=== PATIENT | male | born 1990 | race Caucasian/White ===

== ENCOUNTER 2017-04-17 15:32 | Emergency (ER) | payer SELFPAY ==
[~2017-04-17] VITALS: Ht 193 cm; Wt 117.5 kg
[2017-04-17 16:05] VITALS: BP 146/80
[2017-04-17] MEDS ORDERED: NAPROXEN 500 MG TABLET PO STA (16:13)
[2017-04-17] MEDS ORDERED: HYDROcodone/APAP 5/325MG 1 TAB TABLET PO ONE (16:15)
--- NOTE | 2017-04-17 16:21 | PHYS DOC ---
Past Medical History Past Medical History: No Pertinent History Past Surgical History: Other Additional Past Surgical Histo: TOE SX, L ULNA SX, WISDOM TEETH REMOVAL Alcohol Use: None Drug Use: None Adult General Chief Complaint Chief Complaint: KNEE INJURY HPI HPI Patient is a 26 year old male with no significant medical history who presents today with 8 out of 10 left medial knee pain worse on straightening the knee. Patient states his knee pops out of place several times a day year and he is usually able to put it back in place. Patient states today, it popped out of place and he has been unable to put it back in place. Patient states he cannot straighten the knee right now due to pain. Patient denies any trauma. Review of Systems Review of Systems Constitutional: Denies fever or chills [] Musculoskeletal: Left medial knee pain Integument: Denies rash or skin lesions [] Neurologic: Denies headache, focal weakness or sensory changes [] Endocrine: Denies polyuria or polydipsia [] Current Medications Current Medications Current Medications Medications (Trade) Dose Ordered Sig/Noemí Start Time Stop Time Status Last Admin Dose Admin Acetaminophen/ Hydrocodone Bitart (Lortab 5/325) 2 tab 1X ONCE 04/17/17 16:15 04/17/17 16:16 DC 04/17/17 16:27 2 TAB Naproxen (Naprosyn) 500 mg 1X STAT 04/17/17 16:13 04/17/17 16:15 DC 04/17/17 16:26 500 MG Allergies Allergies Allergies Coded Allergies Type Severity Reaction Last Updated Verified No Known Drug Allergies 04/17/17 No Physical Exam Physical Exam Constitutional: Well developed, well nourished, no acute distress, non-toxic appearance. [] Skin: Warm, dry, no erythema, no rash. [] Back: No tenderness, no CVA tenderness. [] Extremities: Left medial knee with small amount of diffuse soft tissue swelling. Tenderness on palpation of the knee. Patient unable to straighten the left knee. Unable to take the knee through any range of motion due to pain. +2 left pedal pulse. Cap refill less than 2 seconds left lower extremity. Sensation intact to the left lower extremity. Neurologic: Alert and oriented X 3, normal motor function, normal sensory function, no focal deficits noted. [] Psychologic: Affect normal, judgement normal, mood normal. [] Current Patient Data Vital Signs Vital Signs Date Time Temp Pulse Resp B/P (MAP) Pulse Ox O2 Delivery O2 Flow Rate FiO2 04/17/17 16:27 18 Room Air 04/17/17 16:05 98.2 100 98 98.2 EKG EKG [] Radiology/Procedures Radiology/Procedures []PATIENT: GARY WEBER ACCOUNT: [id number] : 1990 LOCATION: ER AGE: 26 SEX: M EXAM STATUS: REG ER ORD. PHYSICIAN: MELODIE ROGERS APRN REASON: pain PROCEDURE: KNEE LEFT 4V Indication pain. AP lateral and sunrise views of the left knee were obtained. No bony abnormality is seen. There may be a small joint effusion DICTATED and SIGNED BY: YUNIEL MCKEON MD DATE: 04/17/17 1631 CC: MELODIE ROGERS APRN; NO PCP; NON,STAFF ~ Course & Med Decision Making Course & Med Decision Making Pertinent Labs and Imaging studies reviewed. (See chart for details) Patient is in the ED with complaints of left knee pain no known injury. He states his knee typically pops out of place several times a year and but today he has been unable to put it back in place. Left knee x-rays interpreted by radiologist are negative for any acute findings Noted for small joint effusion. Patient was placed in an immobilizer by the ED RN, neurovascular exam done by me is normal, cap refill less than 2 seconds. Ice elevation encouraged. Provided crutches. Recommended following up with orthopedic doctor in the course of this week or next to considering this has been a chronic situation. Dragon Disclaimer Dragon Disclaimer This electronic medical record was generated, in whole or in part, using a voice recognition dictation system. Departure Departure Impression: Primary Impression: Chronic pain of left knee Additional Impression: Joint effusion, knee Disposition: HOME, SELF-CARE Condition: STABLE Referrals: NO PCP (PCP) ERMIAS WORRELL MD Follow-up with orthopedic doctor provided in 1-2 weeks Patient Instructions: Knee Pain Additional Instructions: You were seen for left knee pain. We highly recommend you follow-up with the provided orthopedic doctor in the course of this week or next week. Ice and elevate the extremity. Take the prescribed pain medicines as needed for pain. Scripts Hydrocodone/Apap 5-325 (NORCO 5-325 TABLET) 1 Each Tablet 1-2 TAB PO Q4-6HRS, #14 TAB Prov: MELODIE ROGERS APRN 04/17/17 Naproxen (NAPROXEN) 500 Mg Tablet.dr 1 TAB PO BID, #60 TAB 1 Refill Prov: MELODIE ROGERS APRN 04/17/17 Methylprednisolone (MEDROL) 4 Mg Tab.ds.pk 1 PKG PO UD, #1 PKG Prov: MELODIE ROGERS APRN 04/17/17 Problem Qualifiers Additional Impression: Joint effusion, knee Laterality: left Qualified Codes: M25.462 - Effusion, left knee MELODIE ROGERS APRN April 17, 2017 16:21
--- NOTE | 2017-04-17 16:35 | RAD ---
Indication pain. AP lateral and sunrise views of the left knee were obtained. No bony abnormality is seen. There may be a small joint effusion
[2017-04-17] MEDS ORDERED: NAPR500T8 PO (16:43)
[2017-04-17] MEDS ORDERED: HYDR-971 PO (16:43)
[2017-04-17] MEDS ORDERED: METH4TAB2 PO (16:43)
== END 2017-04-17 17:08 | disposition home or self-care (01) ==
LOC: ER 15:32
DX: G89.29 Other chronic pain (principal); M25.562 Pain in left knee; M25.462 Effusion, left knee
CPT/HCPCS: 29505; 73564; 99284-25